=== PATIENT | male | born 1970 | race African-American/Black ===

== ENCOUNTER 2017-03-08 14:17 | Emergency (ER) | payer MEDICAID, OTHER ==
[~2017-03-08] VITALS: Ht 172.7 cm; Wt 63.5 kg
[2017-03-08 16:39] VITALS: BP 152/96
[2017-03-08] MEDS ORDERED: IBUPROFEN 800 MG TAB PO ONE (17:00)
[2017-03-08] MEDS ORDERED: cefTRIAXone SOD 1,000 MG VL IM ONE (17:00)
== END 2017-03-08 17:31 | disposition home or self-care (01) ==
LOC: ER 14:17
DX: L03.312 Cellulitis of back [any part except buttock and flank] (principal); F17.210 Nicotine dependence, cigarettes, uncomplicated
CPT/HCPCS: 96372; 99283; J0696